=== PATIENT | female | born 1960 | race Caucasian/White ===

== ENCOUNTER → 2021-06-19 | Day surgery (SDC) | payer BC ==
[~2021-06-19] MED LIST: Dexamethasone 4 MG/ML SDV ONE; Glycopyrrolate 0.2 MG/ML SDV ONE; Ketorolac 30 MG/ML SDV ONE; Lactated Ringers 1,000 ML IV SCH; Midazolam 1 MG/ML 2 ML SDV ONE; Morphine 4 MG/ML VIAL IV PRN; Neostigmine Methylsulfate 10 MG/10 ML MDV ONE; Ondansetron 4 MG/2 ML SDV IVPUSH PRN; Propofol 200 MG/20 ML SDV ONE; Rocuronium 50 MG/5 ML Vial ONE; Sodium Chloride 0.9% 10 ML Syringe FLUSH PRN; ceFAZolin 1 GM Vial IVPUSH ONE; fentaNYL 100 MCG/2 ML SDV ONE
--- NOTE | 2021-06-19 11:13 | OR ---
DATE OF OPERATION: 06/19/2021 PREOPERATIVE DIAGNOSIS: CHRONIC CHOLECYSTITIS, CHOLELITHIASIS. POSTOPERATIVE DIAGNOSIS: CHRONIC CHOLECYSTITIS, CHOLELITHIASIS. SURGEON: Amadeo Bernardo MD PROCEDURE: LAPAROSCOPIC CHOLECYSTECTOMY. ANESTHESIA: General. ESTIMATED BLOOD LOSS: Minimum. SPECIMEN: Gallbladder and stones. FINDINGS: Normal-appearing gallbladder with numerous small 2 to 3 mm stones. INDICATIONS: This 60-year-old female has had significant right upper quadrant abdominal pain consistent with cholecystitis attacks. She has an ultrasound that shows multiple stones within the gallbladder. DESCRIPTION OF PROCEDURE: After adequate preparation, an infraumbilical incision was made and a Veress needle placed intra-abdominally for insufflation. This was then exchanged for a 5 mm trocar and laparoscope. Three other trocars were placed under direct vision in the right upper quadrant. She did have some omental adhesions around the gallbladder. These were taken off by cautery and dissection. The cystic triangle structures were dissected free, triply clipped and divided, and the gallbladder was taken off the liver bed using cautery and blunt dissection. There was no spillage of bile or stones. The rest of the examination of the abdomen was normal. Her liver appeared to be without defect. There were no other intraabdominal adhesions. The gallbladder was extracted through the epigastric trocar site, the abdomen desufflated, and the skin closed with Vicryl. BPB/MODL /[id number]
[2021-06-19] MEDS: Acetaminophen/oxyCODONE 325-5 MG Tab PO PRN ×3 (12:10→23:38)
--- NOTE | 2021-06-20 07:32 | PCM.SN.2 ---
- Free Text/Narrative Note: Stable POD#1. Wounds clean and dry. Pain controlled. PO liquids tolerated. Can discharge today. FU my clinic 2 weeks if needed. No restrictions. Resume regular diet. Percocet #20 given for pain. Time Documentation
== END | disposition home or self-care (01) ==
LOC: CC.SDS 07:44
PROVIDERS: ATTEND Surgery
DX: K80.10 Calculus of gallbladder with chronic cholecystitis without obstruction (principal); G43.909 Migraine, unspecified, not intractable, without status migrainosus; E66.9 Obesity, unspecified; E78.5 Hyperlipidemia, unspecified; Z68.38 Body mass index [BMI] 38.0-38.9, adult; Z79.82 Long term (current) use of aspirin; Z79.899 Other long term (current) drug therapy; Z98.890 Other specified postprocedural states
CPT/HCPCS: 47562; A9270; J0690; J1100; J1885; J2250; J2704; J2710; J3010; J3490; J7030; J7120